=== PATIENT | female | born 1985 | race Caucasian/White ===

== ENCOUNTER 2017-08-05 17:31 | Emergency (ER) | payer SELFPAY ==
[~2017-08-05] VITALS: Ht 154.9 cm; Wt 68.7 kg
[2017-08-05 17:42] VITALS: Ht 154.9 cm; Wt 68.7 kg
[2017-08-05 18:44] LABS: BASOPHIL % 0.3 % (0-2); PLATELET COUNT 269 x10^3mcL (130-400); RED CELL DISTRIBUTION WIDTH 13.8 % (11.5-14.5)
[2017-08-05 18:58] LABS: ALKALINE PHOSPHATASE 43 U/L (46-116); ALT/SGPT 18 U/L (14-59); AST/SGOT 14 U/L (15-37); BILIRUBIN TOTAL 0.3 mg/dL (0.20-1.00); CALCIUM 8.4 mg/dL (8.5-10.1); CARBON DIOXIDE 23.1 mmol/L (21-32); CHLORIDE SERUM 127 mmol/L (98-107); CREATININE SERUM 0.5 mg/dL (0.6-1.0); GFR1 > 60 mL/min; GLUCOSE SERUM 98 mg/dL (74-106); LIPASE 76 IU/L (73-393); SODIUM SERUM 140 mmol/L (136-145); TOTAL PROTEIN, SERUM 6.7 g/dL (6.4-8.2)
[2017-08-05 19:01] LABS: ALBUMIN 3.1 g/dL (3.4-5.0); POTASSIUM SERUM 2.9 mmol/L (3.5-5.1)
[2017-08-05 19:24] VITALS: BP 151/98
[2017-08-05 19:31] LABS: UA SPECIFIC GRAVITY 1.025 (1.005-1.035); microscopic required? YES; urine erythrocyte TRACE (NEGATIVE)
[2017-08-05 20:09] LABS: AMPHETAMINE QUAL UR POSITIVE (NEG <=1000)
== END 2017-08-05 19:55 | disposition home or self-care (01) ==
LOC: ED 17:31
PROVIDERS: Emergency Medicine
DX: O23.41 Unspecified infection of urinary tract in pregnancy, first trimester (principal); Z3A.00 Weeks of gestation of pregnancy not specified
CPT/HCPCS: G0480; J2405; J3490; J7030; Q0092